=== PATIENT | female | born 1970 | race Caucasian/White ===

== ENCOUNTER 2020-05-04 10:02 | Day surgery (SDC) | payer OTHER, SELFPAY ==
[~2020-05-04] VITALS: Ht 167.6 cm; Wt 104.3 kg
[2020-05-04] MEDS ORDERED: MIDAZOLAM 5 MG/5 ML VIAL ONE (12:25)
[2020-05-04] MEDS ORDERED: fentaNYL citrate 0.05 MG/ML VIAL ONE (12:25)
[2020-05-04] MEDS ORDERED: LIDOCAINE 2% 100 MG/5 ML UJET TP ONE (12:26)
[2020-05-04] MEDS ORDERED: diphenhydrAMINE 50 MG/ML VIAL ONE (12:26)
[2020-05-04] MEDS ORDERED: fentaNYL citrate 0.05 MG/ML VIAL IVP ONE (14:15)
[2020-05-04] MEDS ORDERED: MIDAZOLAM 2 MG/2 ML VIAL IVP ONE (14:15)
== END 2020-05-04 14:00 | disposition home or self-care (01) ==
LOC: MDS 10:02 → MMU 10:46 → MDS 14:00
PROVIDERS: ATTEND Internal Medicine Gastroenterology
DX: K59.00 Constipation, unspecified (principal); K57.30 Diverticulosis of large intestine without perforation or abscess without bleeding; E11.22 Type 2 diabetes mellitus with diabetic chronic kidney disease; N18.3 Chronic kidney disease, stage 3 (moderate); Z90.49 Acquired absence of other specified parts of digestive tract; Z79.82 Long term (current) use of aspirin; Z79.4 Long term (current) use of insulin; Z79.899 Other long term (current) drug therapy; Z20.828 Contact with and (suspected) exposure to other viral communicable diseases
CPT/HCPCS: 45378; 81025; J2250; J3010; U0003; J1200

== ENCOUNTER 2020-12-07 07:27 | Day surgery (SDC) | payer OTHER, SELFPAY ==
[~2020-12-07] VITALS: Ht 167.6 cm; Wt 105.2 kg
[2020-12-07] MEDS ORDERED: fentaNYL citrate 0.05 MG/ML VIAL ONE (10:03)
[2020-12-07] MEDS ORDERED: LIDOCAINE 2% 100 MG/5 ML UJET TP ONE (10:03)
[2020-12-07] MEDS ORDERED: MIDAZOLAM 5 MG/5 ML VIAL ONE (10:03)
[2020-12-07] MEDS ORDERED: diphenhydrAMINE 50 MG/ML VIAL ONE (10:03)
[2020-12-07] MEDS ORDERED: fentaNYL citrate 0.05 MG/ML VIAL IVP ONE (13:35)
[2020-12-07] MEDS ORDERED: MIDAZOLAM 2 MG/2 ML VIAL IVP ONE (13:35)
== END 2020-12-07 11:50 | disposition home or self-care (01) ==
LOC: MDS 07:27 → MMU 07:29 → MDS 11:50
PROVIDERS: ATTEND Internal Medicine Gastroenterology
DX: K59.00 Constipation, unspecified (principal); D12.0 Benign neoplasm of cecum; K29.00 Acute gastritis without bleeding; R13.10 Dysphagia, unspecified; I12.9 Hypertensive chronic kidney disease with stage 1 through stage 4 chronic kidney disease, or unspecified chronic kidney disease; E11.22 Type 2 diabetes mellitus with diabetic chronic kidney disease; N18.4 Chronic kidney disease, stage 4 (severe); Z90.49 Acquired absence of other specified parts of digestive tract; Z79.899 Other long term (current) drug therapy
CPT/HCPCS: 43239; 45385; 87426; J2250; J3010; J1200

== ENCOUNTER 2021-03-01 08:54 | Day surgery (SDC) | payer OTHER ==
[~2021-03-01] VITALS: Ht 167.6 cm; Wt 105.2 kg
[2021-03-01] MEDS ORDERED: MIDAZOLAM 5 MG/5 ML VIAL ONE (10:37)
[2021-03-01] MEDS ORDERED: fentaNYL citrate 0.05 MG/ML VIAL ONE (10:37)
[2021-03-01] MEDS ORDERED: diphenhydrAMINE 50 MG/ML VIAL ONE (10:37)
[2021-03-01] MEDS ORDERED: MIDAZOLAM 2 MG/2 ML VIAL IVP ONE (12:10)
[2021-03-01] MEDS ORDERED: fentaNYL citrate 0.05 MG/ML VIAL IVP ONE (12:10)
== END 2021-03-01 12:28 | disposition home or self-care (01) ==
LOC: MMU 08:54 → MDS 08:54
PROVIDERS: ATTEND Internal Medicine Gastroenterology
DX: R13.10 Dysphagia, unspecified (principal); R11.0 Nausea; K59.00 Constipation, unspecified; E11.22 Type 2 diabetes mellitus with diabetic chronic kidney disease; I12.9 Hypertensive chronic kidney disease with stage 1 through stage 4 chronic kidney disease, or unspecified chronic kidney disease; N18.4 Chronic kidney disease, stage 4 (severe); Z90.49 Acquired absence of other specified parts of digestive tract; Z79.899 Other long term (current) drug therapy
CPT/HCPCS: 43239; 88305; J2250; J3010; J1200